=== PATIENT | female | born 1965 | race Caucasian/White ===

== ENCOUNTER 2022-06-07 11:57 | Emergency (ER) | payer OTHER, SELFPAY ==
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
--- NOTE | ~2022-06-07 | CT_ITS ---
EXAMINATION: CT CERVICAL SPINE WITHOUT CONTRAST CLINICAL INFORMATION: Trauma, neck pain. COMPARISON: CT had noncontrast 06/07/2022. TECHNIQUE: Multidetector volumetric CT imaging of the cervical spine is performed without contrast in the axial plane. Additional 2D reformatted coronal and sagittal images are generated on the CT workstation and uploaded to PACS. This CT examination was performed using dose optimization techniques as appropriate, variously including the following: *Automated exposure control *Adjustment of mA and/or kV according to patient size (this includes techniques or standardized protocols for targeted exams where dose is matched to indication/reason for exam; i.e. extremities or head) *Use of iterative reconstruction technique DLP: 297 mGy-cm FINDINGS: There is no vertebral compression fracture, fracture line, spondylolisthesis, or prevertebral soft tissue swelling. The craniocervical junction appears normal. The odontoid appears intact. There is mild straightening cervical lordosis. Degenerative changes are present with disc narrowing and vertebral spurring C4-C5, C5-C6, and C6-C7. No perched facet. There is no apical pneumothorax. No subcutaneous emphysema. The visualized sinuses, middle ears, and mastoid air cells show no air-fluid levels. CT/CT cervical spine wo IV con IMPRESSION: 1. No acute bony abnormality or prevertebral soft tissue swelling. 2. Degenerative disc changes C4-C5, C5-C6, and C6-C7.
[2022-06-07 12:07] VITALS: BP 122/83; PULSE 67; O2SAT 97
[2022-06-07 12:10] VITALS: BP 103/63; PULSE 60; RESP 18; TEMP 36; O2SAT 97; BMI 22.8
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
[2022-06-07] MEDS: Acetaminophen 325 MG TABLET 975 MG PO (13:13)
== END 2022-06-07 14:48 | disposition home or self-care (01) ==
PROVIDERS: Emergency Provider Emergency Medicine
DX: S13.4XXA Sprain of ligaments of cervical spine, initial encounter (principal); R51.9 Headache, unspecified; M54.2 Cervicalgia; V43.52XA Car driver injured in collision with other type car in traffic accident, initial encounter; Y93.9 Activity, unspecified; Y92.410 Unspecified street and highway as the place of occurrence of the external cause; Y99.9 Unspecified external cause status
CPT/HCPCS: 70450; 72125; 99283; 99284